=== PATIENT | male | born 1965 | race Caucasian/White ===

== ENCOUNTER 2019-01-18 03:18 | Emergency (ER) | payer OTHER ==
[~2019-01-18] VITALS: Ht 175.3 cm; Wt 72.6 kg
[2019-01-18] MEDS ORDERED: LIDOCAINE 1% INJ 20 ML 20 ML VIAL ONE (03:21)
--- NOTE | 2019-01-18 03:33 | ED Integumentary General ---
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 He caused himself to have a 2-3 inch simple laceration of the forearm that does not go into the fascia or cause any loss of movement of his wrist, hand or fingers. He is not sure how long its been since his last tetanus shot but he shirts more than 5 years. He is not on blood thinners and does not need anything for pain. The patient denies a history of high blood pressure. Allergies and Home Medications Allergies Coded Allergies: No Known Drug Allergies (Unverified , 01/18/19) Patient Home Medication List Home Medication List Reviewed: Yes Review of Systems Review of Systems Constitutional: No chills, No diaphoresis EENTM: No ear discharge, No hearing loss Respiratory: No cough, No dyspnea on exertion Cardiovascular: No chest pain, No edema Past Uzlswcp-Gzdzkh-Hpvtav Hx Patient Social History Alcohol Use: Denies Use Recreational Drug Use: No Smoking Status: Current Everyday Smoker Type Used: Cigarettes (1 ppd) Recent Foreign Travel: No Contact w/Someone Who Travel: No Physical Exam Vital Signs Vital Signs - First Documented 01/18/19 03:30 Temp 97.7 Pulse 81 Resp 18 B/P (MAP) 181/91 (121) Pulse Ox 97 O2 Delivery Room Air Capillary Refill : General Appearance: WD/WN, no apparent distress HEENT: PERRL/EOMI, pharynx normal Neck: full range of motion, normal inspection Cardiovascular: normal peripheral pulses, regular rate, rhythm Respiratory: no respiratory distress, no accessory muscle use Gastrointestinal: normal bowel sounds, non tender Extremities: normal range of motion, normal capillary refill, other (anterior right forearm there is a 4 cm simple, linear laceration into the subcutaneous tissue but above the fascial plane and not involving tendons of the forearm.) Neurologic/Psychiatric: no motor/sensory deficits, alert Procedures/Interventions Wound Location: Upper Extremities Other Wound Location Anterior right forearm Wound Length (cm): 4 Wound's Depth, Shape: linear, sub Q Wound Explored: no foreign body removed Irrigated w/ Saline (ccs): 200 Betadine Prep?: Yes (chlorhexidine and sterile saline) Anesthesia: 1% Lidocaine Volume Anesthetic (ccs): 2 Wound Debrided: minimal Suture: Ethlion Suture Size: 4-0 Number of Sutures: 8 Sterile Dressing Applied?: Yes Progress Wound was thoroughly cleaned with chlorhexidine and sterile saline and gauze. Explored but the fascial sheath was not perforated. 2 cc of 1% lidocaine were used along the skin edge to gain anesthesia. Skin edges were reapproximated and held in place with 8 simple, interrupted stitches using 4-0 Ethilon. The patient tolerated the procedure well. Progress/Results/Core Measures Results/Orders My Orders Orders - [place] MORROW Lidocaine 1% Inj 20 Ml (Xylocaine 1% Inj (01/18/19 03:21) Lidocaine 1% Inj 20 Ml (Xylocaine 1% Inj (01/18/19 03:45) Dipht,Pertuss(Acell),Tet Adult (Boostrix (01/18/19 03:45) Medications Given in ED Current Medications Medications Dose Ordered Sig/Kenneth Route Start Time Stop Time Status Last Admin Dose Admin Diphtheria/ Tetanus/Acell Pertussis 0.5 ml ONCE ONCE IM 01/18/19 03:45 01/18/19 03:46 DC 01/18/19 03:38 0.5 ML Lidocaine HCl 20 ml ONCE ONCE INJ 01/18/19 03:45 01/18/19 03:46 DC 01/18/19 03:40 20 ML Vital Signs/I&O 01/18/19 03:30 Temp 97.7 Pulse 81 Resp 18 B/P (MAP) 181/91 (121) Pulse Ox 97 O2 Delivery Room Air Progress Progress Note : Time: 03:30 Progress Note T Dep, lidocaine, cleaned the wound with chlorhexidine and sterile saline and there is no apparent foreign debris or significant bleeding. Plan to suture it back up. Departure Impression Primary Impression: Laceration of forearm, right Qualified Codes: S51.811A - Laceration without foreign body of right forearm, initial encounter Additional Impression: Hypertension Qualified Codes: I10 - Essential (primary) hypertension Disposition: 01 HOME, SELF-CARE Condition: Stable Departure-Patient Inst. Decision time for Depature: 03:59 Referrals: NO,LOCAL PHYSICIAN (PCP/Family) Primary Care Physician Patient Instructions: Laceration Repair With Stitches (DC), High Blood Pressure (DC) Add. Discharge Instructions: Plan to follow up with your primary care doctor in the next 1-2 weeks for wound reevaluation and to address today's high blood pressure to see if it's consistently high. Keep the wound clean with regular soap and water only and keep it dressed with some gauze. It's okay to put a thin layer of Vaseline or triple antibiotic ointment over the sutures. Keep the wound clean and if it begins to look red, hot, swollen or has drainage then you should have it reevaluated by for possible wound infection. Plan to follow up with your doctor or return to the ER in 10-14 days to have the sutures removed. Work/School Note: Work Release Form Date Seen in the Emergency Department: Jan 18, 2019 Return to Work: Jan 19, 2019 Restrictions: No Restrictions [place] MORROW Jan 18, 2019 03:32
[2019-01-18] MEDS ORDERED: LIDOCAINE 1% INJ 20 ML 20 ML VIAL INJ ONE (03:45)
[2019-01-18] MEDS ORDERED: TETANUS,DIPTH,PERTUSS P/F (BOOSTRIX) 0.5 ML VIAL IM ONE (03:45)
[2019-01-18 04:15] VITALS: BP 156/94
== END 2019-01-18 04:16 | disposition home or self-care (01) ==
LOC: ER FS 03:20
DX: S51.811A Laceration without foreign body of right forearm, initial encounter (principal); I10 Essential (primary) hypertension; F17.210 Nicotine dependence, cigarettes, uncomplicated; Z23 Encounter for immunization; W26.8XXA Contact with other sharp object(s), not elsewhere classified, initial encounter; Y92.59 Other trade areas as the place of occurrence of the external cause
CPT/HCPCS: 90715; 99284

== ENCOUNTER 2019-01-27 07:03 | Emergency (ER) | payer OTHER ==
[~2019-01-27] VITALS: Ht 182.9 cm; Wt 72.6 kg
[2019-01-27 07:45] VITALS: BP 160/103
== END 2019-01-27 07:45 | disposition home or self-care (01) ==
LOC: EDUNIT# 07:03 → ER FS 07:04
DX: S51.811D Laceration without foreign body of right forearm, subsequent encounter (principal); X58.XXXD Exposure to other specified factors, subsequent encounter

== ENCOUNTER → 2022-03-06 | Outpatient (CLI) | payer OTHER ==
--- NOTE | 2022-03-06 14:00 | Diagnostic Imaging Report ---
INDICATION: Follow-up fracture. Fall. COMPARISON: None FINDINGS: Multiple radiographic views of the right ankle were obtained and demonstrate slightly oblique oriented fracture of the distal fibula. Fracture line is identified inferior to the level of the tibiotalar joint space. There is no significant displacement of fracture fragments. There is no prior available for comparison, but no bridging callus formation or other evidence of significant healing is seen. Tibiotalar joint space is maintained. No unexpected radiopaque foreign bodies are seen. IMPRESSION: 1. Distal fibular fracture of the right ankle as above. Dictated by: Dictated on workstation # [id number]
== END ==
LOC: RAD FS 11:12
PROVIDERS: ATTEND Nurse Practitioner
DX: S82.831A Other fracture of upper and lower end of right fibula, initial encounter for closed fracture (principal); X58.XXXA Exposure to other specified factors, initial encounter
CPT/HCPCS: 73610

== ENCOUNTER → 2022-03-20 | Outpatient (CLI) | payer OTHER ==
--- NOTE | 2022-03-20 11:08 | Diagnostic Imaging Report ---
INDICATION: Fracture of the fibula. EXAMINATION: Right ankle from 03/20/2022. COMPARISON: 03/06/2022. FINDINGS: Three views of the ankle. There is diffuse soft tissue swelling. Fracture of the distal fibula is again seen with increased diastasis, likely due to osseous resorption, consistent with changes of early healing. No significant callus formation is seen. No other fractures identified. Ankle mortise is intact. IMPRESSION: 1. Fibular fracture as described with no significant displacement. Dictated by: Dictated on workstation # [id number]
== END ==
LOC: RAD FS 10:03
PROVIDERS: ATTEND Nurse Practitioner
DX: S82.831A Other fracture of upper and lower end of right fibula, initial encounter for closed fracture (principal); X58.XXXA Exposure to other specified factors, initial encounter
CPT/HCPCS: 73610

== ENCOUNTER → 2022-04-10 | Outpatient (CLI) | payer OTHER ==
--- NOTE | 2022-04-10 11:40 | Diagnostic Imaging Report ---
INDICATION: Followup ankle fracture, pain. COMPARISON: 03/20/2022. TECHNIQUE: Three radiographs of the right ankle dated 04/10/2022. FINDINGS: Lucency extending through the lateral malleolus is again identified. This lucency is minimally more prominent than on the prior examination with blurring of the fracture margins. No significant periosteal reaction. Overlying soft tissue swelling involving the lateral ankle is again seen. No new fracture or dislocation. No destructive osseous process. The talar dome is unremarkable. The ankle mortise is symmetric. No suspicious radiopaque foreign body. IMPRESSION: Slightly increased prominence of the lucency involving the lateral malleolus which may relate to resorption and early healing of this not significantly displaced fracture. Recommend continued radiographic followup. Persistent soft tissue swelling overlying the lateral ankle. No new acute osseous abnormality. Dictated by: Dictated on workstation # [id number]
== END ==
LOC: RAD FS 08:53
PROVIDERS: ATTEND Nurse Practitioner
DX: S82.831D Other fracture of upper and lower end of right fibula, subsequent encounter for closed fracture with routine healing (principal); X58.XXXD Exposure to other specified factors, subsequent encounter
CPT/HCPCS: 73610